=== PATIENT | male | born 1985 | race Two or more races ===

== ENCOUNTER 2016-11-24 09:48 | Emergency (ER) | payer OTHER ==
[2016-11-24 09:59] VITALS: BMI 27.3
--- NOTE | 2016-11-24 11:27 | PDOC ---
[id number] No Limitations - History of Present Illness Initial Comments: 11/24/16 12:11 The patient is a 31-year-old male with no significant past medical history, and presents to the emergency department with abdominal pain and dizziness for 4 days. The patient reports that the pain is located in the epigastric region, and is a 6/10 in severity. 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 He also reports that he consulted a GI doctor yesterday, was given Dexilant, and was told to wait 5 days for potential alleviation. He reports the abdominal pain worsened this morning, prompting him to come in. He reports associated gassiness and burping. He also reports noticing slight blood coming from his mouth after brushing his teeth this morning. The patient denies chest pain, shortness of breath, and headache. The patient denies fever, chills, nausea, vomit, diarrhea and constipation. The patient denies dysuria, frequency, urgency and hematuria. Allergies: NKDA Past Surgical History: None reported Social History: No toxic habits <Shila Feliz - Last Filed: 11/24/16 12:11> <Jamar Stark - Last Filed: 01/14/17 09:59> - General Chief Complaint: Pain Stated Complaint: ABD PAIN, DIZZINESS Past History <Shila Feliz - Last Filed: 11/24/16 12:11> - Psycho/Social/Smoking Cessation Hx Suicidal Ideation: No Smoking History: Never smoked Information on smoking cessation initiated: No <Jamar Stark - Last Filed: 01/14/17 09:59> - Past Medical History Allergies/Adverse Reactions: Allergies Allergy/AdvReac Type Severity Reaction Status Date / Time No Known Allergies Allergy Verified 11/24/16 09:59 Home Medications: Ambulatory Orders Acetaminophen W/ Codeine #3 [Tylenol # 3 -] 1 tab PO Q4H #6 tablet MDD 3 Ciprofloxacin HCl [Cipro] 500 mg PO BID #20 tablet 11/24/16 Metronidazole [Flagyl] 500 mg PO BID #20 capsule 11/24/16 Review of Systems - Review of Systems Able to Perform ROS?: Yes Comments:: 11/24/16 12:11 GENERAL/CONSTITUTIONAL: No fever or chills. No weakness. HEAD, EYES, EARS, NOSE AND THROAT: No change in vision. No ear pain or discharge. No sore throat. CARDIOVASCULAR: No chest pain or shortness of breath. RESPIRATORY: (+) Hemoptysis. No cough, wheezing. GASTROINTESTINAL: (+) Abdominal pain. No nausea, vomiting, diarrhea or constipation. GENITOURINARY: No dysuria, frequency, or change in urination. MUSCULOSKELETAL: No joint or muscle swelling or pain. No neck or back pain. SKIN: No rash NEUROLOGIC: (+) Dizziness. No headache, vertigo, loss of consciousness, or change in strength/sensation. ENDOCRINE: No increased thirst. No abnormal weight change. HEMATOLOGIC/LYMPHATIC: No anemia, easy bleeding, or history of blood clots. ALLERGIC/IMMUNOLOGIC: No hives or skin allergy. <Shila Feliz - Last Filed: 11/24/16 12:11> *Physical Exam - Vital Signs Last Vital Signs Temp Pulse Resp BP Pulse Ox 98 F 72 18 137/73 97 11/24/16 09:57 11/24/16 09:57 11/24/16 09:57 11/24/16 09:57 11/24/16 09:57 - Physical Exam Comments: 11/24/16 12:11 GENERAL: Awake, alert, and fully oriented, in no acute distress HEAD: No signs of trauma EYES: PERRLA, EOMI, sclera anicteric, conjunctiva clear ENT: Auricles normal inspection, hearing grossly normal, nares patent, oropharynx clear without exudates. Moist mucosa NECK: Normal ROM, supple, no lymphadenopathy, JVD, or masses LUNGS: Breath sounds equal, clear to auscultation bilaterally. No wheezes, and no crackles HEART: Regular rate and rhythm, normal S1 and S2, no murmurs, rubs or gallops ABDOMEN: (+) Tenderness in the epigastric region. Soft, normoactive bowel sounds. No guarding, no rebound. No masses EXTREMITIES: Normal range of motion, no edema. No clubbing or cyanosis. No cords, erythema, or tenderness NEUROLOGICAL: Cranial nerves II through XII grossly intact. Normal speech, normal gait SKIN: Warm, Dry, normal turgor, no rashes or lesions noted. <Shila Feliz - Last Filed: 11/24/16 12:11> - Vital Signs Last Vital Signs Temp Pulse Resp BP Pulse Ox 98 F 72 18 137/73 97 11/24/16 09:57 11/24/16 09:57 11/24/16 09:57 11/24/16 09:57 11/24/16 09:57 <Jamar Stark - Last Filed: 01/14/17 09:59> ED Treatment Course - LABORATORY CBC & Chemistry Diagram: 11/24/16 11:50 11/24/16 11:50 - ADDITIONAL ORDERS Additional order review: 11/24/16 11:50 RBC 4.90 MCV 87.6 MCHC 33.6 RDW 13.0 MPV 8.6 Neutrophils % 66.6 Lymphocytes % 19.5 Monocytes % 12.0 H Eosinophils % 1.4 Basophils % 0.5 <Shila Feliz - Last Filed: 11/24/16 12:11> - LABORATORY CBC & Chemistry Diagram: 11/24/16 11:50 11/24/16 11:50 <Jamar Stark - Last Filed: 01/14/17 09:59> *DC/Admit/Observation/Transfer - Attestations Scribe Attestion: 11/24/16 12:12 Documentation prepared by Shila Feliz, acting as medical housekeeper for Jamar Stark MD. <Shila Feliz - Last Filed: 11/24/16 12:11> - Attestations Physician Attestion: 11/24/16 11:27 I, Dr. Jamra Stark, attest that this document has been prepared under my direction and personally reviewed by me in its entirety. I further attest, that it accurately reflects all work, treatment, procedures and medical decision -making performed by me. <Jamar Stark - Last Filed: 01/14/17 09:59> Diagnosis at time of Disposition: Colitis Abdominal pain Qualifiers: Abdominal location: epigastric Qualified Code(s): R10.13 - Epigastric pain - Discharge Dispostion Disposition: HOME - Prescriptions Prescriptions: Ciprofloxacin HCl [Cipro] 500 mg PO BID #20 tablet Metronidazole [Flagyl] 500 mg PO BID #20 capsule Acetaminophen W/ Codeine #3 [Tylenol # 3 -] 1 tab PO Q4H #6 tablet MDD 3 - Patient Instructions Additional Instructions: At this time, as discussed, there is a strong likelihood your symptoms are related to an inflammation of the colon wall, nonspecifically and this must have follow up colonoscopy for definitive evaluation. Please follow up with the GI specialist as you have been and if there is any change otherwise in your symptoms, please return immediately to the ED. Also, please keep a food diary for symptom control as well.
[2016-11-24 12:02] LABS: BASOPHIL 0.5 % (0-2.0); EOSINOPHIL 1.4 % (0-4.5); MCH 29.4 pg (25.7-33.7); MCHC 33.6 g/dl (32.0-35.9); MEAN CELL VOLUME 87.6 fl (80-96); MEAN PLT VOLUME 8.6 fl (7.5-11.1); NEUTROPHILS 66.6 % (42.8-82.8); PLATELET COUNT 221 K/MM3 (134-434); WHITE BLOOD COUNT 6.5 K/mm3 (4.0-10.0)
[2016-11-24 12:13] LABS: INR 1.12 (0.82-1.09); PROTHROMBIN TIME (PATIENT) 12.4 SEC (9.98-11.88)
[2016-11-24 12:35] LABS: ALBUMIN 4.1 g/dl (3.4-5.0); ANION GAP 5 (8-16); BILIRUBIN,TOTAL 0.6 mg/dL (0.2-1.0); CALCIUM 9.2 mg/dL (8.5-10.1); CO2 31 mmol/L (21-32); GLUCOSE,RANDOM 90 mg/dL (74-106); TOT PROT 7.6 g/dl (6.4-8.2)
[2016-11-24 12:40] LABS: URINE APPEARANCE CLEAR; URINE BILIRUBIN NEGATIVE (NEGATIVE); URINE BLOOD NEGATIVE (NEGATIVE); URINE COLOR LTYELLOW; URINE GLUCOSE (UA) NEGATIVE (NEGATIVE); URINE KETONE NEGATIVE (NEGATIVE); URINE LEUK ESTERASE NEGATIVE (NEGATIVE); URINE NITRITE NEGATIVE (NEGATIVE); URINE PROTEIN NEGATIVE (NEGATIVE); URINE UROBILINOGEN NEGATIVE E.U./dl (0.2-1.0)
[2016-11-24 12:41] LABS: ALK PHOS 54 U/L (45-117); SGPT/ALT 19 U/L (12-78)
[2016-11-24 12:43] LABS: SGOT/AST 22 U/L (15-37)
[2016-11-24 19:12] VITALS: TEMP 98.2
[2016-11-24 19:14] VITALS: BP 116/78; PULSE 69
--- NOTE | 2016-11-24 20:33 | PDOC ---
[id number]/52 99 11/24/16 19:11 11/24/16 19:11 11/24/16 19:11 11/24/16 19:11 11/24/16 19:11 <Georgette Benavides - Last Filed: 11/24/16 20:54> - Vital Signs Last Vital Signs Temp Pulse Resp BP Pulse Ox 98.2 F 64 16 121/52 99 11/24/16 19:11 11/24/16 19:11 11/24/16 19:11 11/24/16 19:11 11/24/16 19:11 - Physical Exam Comments: 11/24/16 20:27 Pt received on sign out, comfortable. CT shows evidence of concerntric cecum and ascending colonic wall thickening nonsepcifically. He has already been taking the PPI and I will start the patient on cipro/flagyl combination therapy and encourage the patient to maintain a food diary and follow up with the GI specialist he is already working with for upper endoscopy and colonoscopy. Aggressive hydration, nutrition as tolerated. 11/26/16 02:06 <Keith Ruffin - Last Filed: 12/04/16 01:25> ED Treatment Course - LABORATORY CBC & Chemistry Diagram: 11/24/16 11:50 11/24/16 11:50 - ADDITIONAL ORDERS Additional order review: Laboratory Results 11/24/16 11/24/16 11/24/16 12:30 11:50 11:50 INR 1.12 Sodium 139 Potassium 4.6 Chloride 103 Carbon Dioxide 31 Anion Gap 5 L BUN 11 Creatinine 1.0 Creat Clearance w eGFR > 60 Random Glucose 90 Calcium 9.2 Total Bilirubin 0.6 AST 22 ALT 19 Alkaline Phosphatase 54 Total Protein 7.6 Albumin 4.1 Lipase 141 Urine Color Ltyellow Urine Appearance Clear Urine pH 8.0 Ur Specific Josephine 1.016 Urine Protein Negative Urine Glucose (UA) Negative Urine Ketones Negative Urine Blood Negative Urine Nitrite Negative Urine Bilirubin Negative Urine Urobilinogen Negative Ur Leukocyte Esterase Negative 11/24/16 11:50 RBC 4.90 MCV 87.6 MCHC 33.6 RDW 13.0 MPV 8.6 Neutrophils % 66.6 Lymphocytes % 19.5 Monocytes % 12.0 H Eosinophils % 1.4 Basophils % 0.5 - RADIOLOGY Radiograph Interpretation: 11/24/16 20:[address] as reviewed by Dr. Olson who reports apparent concentric wall edema along the length of the ascending colon including the cecum and also involving the hepatic flexure. Less likely this appearance could be artifactual on the basis of limited distention. <Georgette Benavides - Last Filed: 11/24/16 20:54> - LABORATORY CBC & Chemistry Diagram: 11/24/16 11:50 11/24/16 11:50 - ADDITIONAL ORDERS Additional order review: Laboratory Results 11/24/16 11/24/16 11/24/16 12:30 11:50 11:50 INR 1.12 Sodium 139 Potassium 4.6 Chloride 103 Carbon Dioxide 31 Anion Gap 5 L BUN 11 Creatinine 1.0 Creat Clearance w eGFR > 60 Random Glucose 90 Calcium 9.2 Total Bilirubin 0.6 AST 22 ALT 19 Alkaline Phosphatase 54 Total Protein 7.6 Albumin 4.1 Lipase 141 Urine Color Ltyellow Urine Appearance Clear Urine pH 8.0 Ur Specific Josephine 1.016 Urine Protein Negative Urine Glucose (UA) Negative Urine Ketones Negative Urine Blood Negative Urine Nitrite Negative Urine Bilirubin Negative Urine Urobilinogen Negative Ur Leukocyte Esterase Negative 11/24/16 11:50 RBC 4.90 MCV 87.6 MCHC 33.6 RDW 13.0 MPV 8.6 Neutrophils % 66.6 Lymphocytes % 19.5 Monocytes % 12.0 H Eosinophils % 1.4 Basophils % 0.5 <Keith Ruffin - Last Filed: 12/04/16 01:25> *DC/Admit/Observation/Transfer - Attestations Scribe Attestion: 11/24/16 20:58 Documentation prepared by Georgette Benavides, acting as anesthesiology medical doctor for Keith Ruffin MD. <Georgette Benavides - Last Filed: 11/24/16 20:54> - Discharge Dispostion Admit: No Decision to Admit order Date/Time: 11/24/16 20:29 <Keith Ruffin - Last Filed: 12/04/16 01:25> Diagnosis at time of Disposition: Colitis Abdominal pain Qualifiers: Abdominal location: epigastric Qualified Code(s): R10.13 - Epigastric pain - Discharge Dispostion Disposition: HOME - Prescriptions Prescriptions: Ciprofloxacin HCl [Cipro] 500 mg PO BID #20 tablet Metronidazole [Flagyl] 500 mg PO BID #20 capsule Acetaminophen W/ Codeine #3 [Tylenol # 3 -] 1 tab PO Q4H #6 tablet MDD 3 - Patient Instructions Additional Instructions: At this time, as discussed, there is a strong likelihood your symptoms are related to an inflammation of the colon wall, nonspecifically and this must have follow up colonoscopy for definitive evaluation. Please follow up with the GI specialist as you have been and if there is any change otherwise in your symptoms, please return immediately to the ED. Also, please keep a food diary for symptom control as well.
== END 2016-11-24 20:50 | disposition home or self-care (01) ==
LOC: JER 09:48
DX: K52.9 Noninfective gastroenteritis and colitis, unspecified (principal)
CPT/HCPCS: 36415; 74020-TC; 74177-TC; 80053; 81003; 83690; 85025; 85610; 99282-25; Q9967

== ENCOUNTER 2019-09-28 10:18 | Emergency (ER) | payer OTHER ==
[2019-09-28 10:29] VITALS: BP 117/76; PULSE 83; TEMP 97.8; BMI 31.9
--- NOTE | 2019-09-28 11:42 | PDOC ---
History of Present Illness - General Chief Complaint: Pain Stated Complaint: INJURY Time Seen by Provider: 09/28/19 11:04 History Source: Patient Exam Limitations: No Limitations - History of Present Illness Initial Comments: 09/28/19 11:42 HISTORY OF PRESENT ILLNESS: 34-year-old male presents emergency department for evaluation of sacral pain status post fall yesterday. Patient states he was stepping into an [employer] when he slipped falling down striking his sacrum on the seatbelt buckle. Patient has been ambulatory since the incident but when he woke up he had increased pain. He denies any neurosensory deficits, saddle anesthesia, incontinence of bladder or bowel or urinary retention. No recent travel or sick contacts. PAST MEDICAL HISTORY: Denies past medical history SURGICAL HISTORY: Denies ALLERGIES: No known drug allergies REVIEW OF SYSTEMS General/Constitutional: Denies fever or chills. Denies weakness, weight change. HEENT: Denies change in vision. Denies ear pain or discharge. Denies sore throat. Cardiovascular: Denies chest pain or shortness of breath. Respiratory: Denies cough, wheezing, or hemoptysis. Gastrointestinal: Denies nausea, vomiting, diarrhea or constipation. Denies rectal bleeding. Genitourinary: Denies dysuria, frequency, or change in urination. Musculoskeletal: See HPI Skin and breasts: Denies rash or easy bruising. Neurologic: Denies headache, vertigo, loss of consciousness, or loss of sensation. Psychiatric: Denies depression or anxiety. Endocrine: Denies increased thirst. Denies abnormal weight change. Hematologic/Lymphatic: Denies anemia, easy bleeding, or history of blood clots. Allergic/Immunologic: Denies hives or skin allergy. Denies latex allergy. PHYSICAL EXAM General Appearance: Well-appearing, appropriately dressed. No apparent distress , no intoxication. Gastrointestinal/Abdominal: Normal bowel sounds. Abdomen soft, non-distended. No tenderness or rebound tenderness. No organomegaly, pulsatile mass, guarding, hernia, hepatomegaly, splenomegaly. Lymphatic: No adenopathy, tenderness. Musculoskeletal/Extremities: Normal inspection. FROM of all extremities, normal capillary refill. Pelvis Stable. No CVA tenderness. No tenderness to extremities, pedal edema, swelling, erythema or deformity. No bony tenderness, deformity, crepitus or step-off present to lumbar spine or sacrum. Integumentary: Appropriate color, dry, warm. No cyanosis, erythema, jaundice or rash. No ecchymosis, laceration or rectal trauma present. Neurologic: director graphics II-XII intact. Fully oriented, alert. Appropriate mood/affect. Motor strength 5/5. No appreciable EOM palsy, facial droop or sensory deficit. Able to perform straight leg raises. Past History - Past Medical History Allergies/Adverse Reactions: Allergies Allergy/AdvReac Type Severity Reaction Status Date / Time No Known Allergies Allergy Verified 09/28/19 10:28 Home Medications: Ambulatory Orders Acetaminophen W/ Codeine #3 [Tylenol # 3 -] 1 tab PO Q4H #6 tablet MDD 3 Ciprofloxacin HCl [Cipro] 500 mg PO BID #20 tablet 11/24/16 Metronidazole [Flagyl] 500 mg PO BID #20 capsule 11/24/16 COPD: No - Psycho Social/Smoking Cessation Hx Smoking History: Never smoked *Physical Exam - Vital Signs Last Vital Signs Temp Pulse Resp BP Pulse Ox 97.8 F 83 18 117/76 99 09/28/19 10:26 09/28/19 10:26 09/28/19 10:26 09/28/19 10:26 09/28/19 10:26 ED Treatment Course - RADIOLOGY Radiology Studies Ordered: Category Date Time Status SACRUM [RAD] Stat Radiology 09/28/19 11:05 Completed Medical Decision Making - Medical Decision Making 09/28/19 11:41 A/P: 34-year-old male with sacral pain status post fall onto seatbelt buckle No bony tenderness upon palpation of the lumbar and sacral spines. X-rays read by Dr. Varela: No acute pathology is present. No skin tears or lacerations are noted No ecchymosis is present No neurosensory deficits appreciated Rectal exam is deferred. Patient is refusing pain medication at this time. Discharge home with supportive care. I discussed the physical exam findings, ancillary test results and final diagnoses with the patient. I answered all of the patient's questions. The patient was satisfied with the care received and felt comfortable with the discharge plan and treatment plan. The patient will call their primary care physician within 24 hours to arrange follow-up and will return to the Emergency Department with any new, persistent or worsening symptoms. Discharge - Discharge Information Problems reviewed: Yes Clinical Impression/Diagnosis: Sacral contusion Qualifiers: Encounter type: initial encounter Qualified Code(s): S30.0XXA - Contusion of lower back and pelvis, initial encounter Condition: Stable Disposition: HOME - Admission No - Follow up/Referral - Patient Discharge Instructions Additional Instructions: Rest. Take Tylenol or Motrin as needed for pain. Follow specialist field engineer's instructions for appropriate dosage You may purchase an inflatable doughnut from a local pharmacy to help relieve pressure on your sacrum. Do not purchase a donut you may roll up a towel and sit on that. You have been given a note for work. You may return sooner should your symptoms improve. Your emergency department visit is incomplete until you follow-up with your primary doctor. Return to the emergency department for any new or worsening symptoms. Thank you very much for choosing us to provide your emergent healthcare needs. - Post Discharge Activity Work/Back to School Note: Back to Work
== END 2019-09-28 11:44 | disposition home or self-care (01) ==
LOC: JERFT 10:18
DX: S30.0XXA Contusion of lower back and pelvis, initial encounter (principal); V48.4XXA Person boarding or alighting a car injured in noncollision transport accident, initial encounter; Y92.414 Local residential or business street as the place of occurrence of the external cause; Y93.89 Activity, other specified; Y99.8 Other external cause status
CPT/HCPCS: 72220-TC-FY; 99282-25